=== PATIENT | female | born 1980 | race Caucasian/White ===

== ENCOUNTER → 2016-09-02 | Outpatient (CLI) | payer OTHER ==
[~2016-09-02] MED LIST: FLEXERIL5 MG PO; MOTRIN800 MG PO
[2016-09-02 15:01] LABS: BUN 11 mg/dl (7-24); EST GLOM FILT AFRICAN AMERICAN > 60 ml/min; GLUCOSE 89 mg/dL (65-99)
== END | disposition home or self-care (01) ==
LOC: LAB 14:08
PROVIDERS: Internal Medicine Endocrinology, Diabetes & Metabolism
DX: E28.2 Polycystic ovarian syndrome (principal); E66.9 Obesity, unspecified

== ENCOUNTER → 2017-03-11 | Outpatient (CLI) | payer OTHER ==
[2017-03-11 16:48] LABS: BUN 12 mg/dl (7-24); CREATININE 0.63 mg/dL (0.55-1.02)
== END | disposition home or self-care (01) ==
LOC: LAB 14:55
PROVIDERS: Internal Medicine Endocrinology, Diabetes & Metabolism
DX: E28.2 Polycystic ovarian syndrome (principal); E66.9 Obesity, unspecified

== ENCOUNTER → 2017-07-06 | Outpatient (CLI) | payer OTHER ==
[2017-07-07 08:07] LABS: PROLACTIN 004465 19.6 ng/mL (4.8-23.3); THYROID PEROXIDASE (TPO) AB 135 IU/mL (0-34)
[2017-07-09 07:46] LABS: THYROID STIM IMMUNOGLOBULIN <0.10 IU/L (0.00-0.55)
== END | disposition home or self-care (01) ==
LOC: LAB 03:36
DX: E28.2 Polycystic ovarian syndrome (principal)

== ENCOUNTER 2017-12-08 23:34 | Emergency (ER) | payer OTHER ==
[~2017-12-08] VITALS: Ht 149.8 cm; Wt 78.5 kg
[2017-12-09] LABS: BILIRUBIN NEGATIVE (NEGATIVE); BLOOD TRACE-INTACT (NEGATIVE); CLARITY CLEAR (CLEAR); COLOR YELLOW (YELLOW); GLUCOSE NEGATIVE (NEGATIVE); KETONE NEGATIVE (NEGATIVE); LEUKO ESTERASE 2+ (NEGATIVE); NITRITE NEGATIVE (NEGATIVE); PH 6.5 (5.0-9.0); SPECIFIC GRAVITY <= 1.005 (1.005-1.030); UROBILINOGEN 0.2 E.U./dl (0.2-1.0)
[2017-12-09 00:20] LABS: EPITHELIAL CELLS 15-20
[2017-12-09] MEDS ORDERED: SEPTDS PO (01:29)
== END 2017-12-09 02:10 | disposition home or self-care (01) ==
LOC: ED 23:34
PROVIDERS: Nurse Practitioner Family
DX: S02.2XXA Fracture of nasal bones, initial encounter for closed fracture (principal); N39.0 Urinary tract infection, site not specified; W50.0XXA Accidental hit or strike by another person, initial encounter; Y93.61 Activity, american tackle football; Y92.89 Other specified places as the place of occurrence of the external cause; Y99.9 Unspecified external cause status

== ENCOUNTER → 2018-05-06 | Outpatient (CLI) | payer OTHER ==
[~2018-05-06] MED LIST changes: +SEPTDS PO
[2018-05-06 11:45] LABS: BUN 7 mg/dl (7-24); CREATININE 0.63 mg/dL (0.55-1.02)
== END | disposition home or self-care (01) ==
LOC: LAB 11:01
PROVIDERS: Internal Medicine Endocrinology, Diabetes & Metabolism
DX: E66.9 Obesity, unspecified (principal); E28.2 Polycystic ovarian syndrome

== ENCOUNTER → 2019-01-08 | Outpatient (CLI) | payer OTHER ==
[2019-01-08 12:50] LABS: THYROID STIM HORMONE (HS) 1.27 uIU/ml (0.358-4.75)
== END | disposition home or self-care (01) ==
LOC: LAB 11:37
PROVIDERS: Internal Medicine Endocrinology, Diabetes & Metabolism
DX: E28.2 Polycystic ovarian syndrome (principal); E66.9 Obesity, unspecified; R73.01 Impaired fasting glucose

== ENCOUNTER → 2019-09-20 | Outpatient (CLI) | payer OTHER ==
[2019-09-20 12:34] LABS: BUN 10 mg/dl (7-24); CHLORIDE 106 mmol/L (98-107); CREATININE 0.71 mg/dL (0.55-1.02); POTASSIUM 3.8 mmol/L (3.5-5.1); SODIUM 139 mmol/L (136-145)
[2019-09-20 12:40] LABS: VITAMIN D, 25-HYDROXY 30.5 ng/mL (30-100)
== END ==
LOC: LAB 10:46
PROVIDERS: Internal Medicine Endocrinology, Diabetes & Metabolism
DX: E28.2 Polycystic ovarian syndrome (principal); E66.9 Obesity, unspecified; E56.8 Deficiency of other vitamins; R73.01 Impaired fasting glucose

== ENCOUNTER → 2019-10-19 | Outpatient (CLI) | payer OTHER | END | disposition home or self-care (01) | LOC: LAB 12:02 | DX: Z31.81 Encounter for male factor infertility in female patient (principal); Z97.8 Presence of other specified devices ==

== ENCOUNTER → 2019-11-24 | Outpatient (CLI) | payer OTHER | END | disposition home or self-care (01) | LOC: LAB 07:21 | DX: N97.0 Female infertility associated with anovulation (principal) ==

== ENCOUNTER → 2020-01-18 | Outpatient (CLI) | payer OTHER ==
[2020-01-18 12:16] LABS: BUN 8 mg/dl (7-24); CHOLESTEROL 229 mg/dL (<200); CREATININE 0.67 mg/dL (0.55-1.02); HDL CHOLESTEROL 46 mg/dl (40-60); LDL CHOLESTEROL 137 mg/dL (9-159); SGOT/AST 90 IU/L (3-35); SGPT/ALT 119 U/L (12-78); TRIGLYCERIDES 230 mg/dl (<150); VLDL CHOLESTEROL 46 mg/dL (6-40)
[2020-01-18 12:30] LABS: VITAMIN D, 25-HYDROXY 34.8 ng/mL (30-100)
== END ==
LOC: LAB 11:08
PROVIDERS: ATTEND Internal Medicine Endocrinology, Diabetes & Metabolism
DX: E28.2 Polycystic ovarian syndrome (principal); E66.9 Obesity, unspecified; R73.01 Impaired fasting glucose; E56.8 Deficiency of other vitamins

== ENCOUNTER → 2020-03-19 | Outpatient (CLI) | payer OTHER ==
[2020-03-20 07:06] LABS: HEPATITIS B SURFACE AG Negative (Negative); HEPATITIS C AB <0.1 (0.0-0.9)
[2020-03-20 08:08] LABS: CYTOMEGALOVIRUS AB, IGG <0.60 U/mL (0.00-0.59)
== END | disposition home or self-care (01) ==
LOC: LAB 09:15
PROVIDERS: ATTEND Obstetrics & Gynecology Reproductive Endocrinology
DX: Z11.9 Encounter for screening for infectious and parasitic diseases, unspecified (principal)

== ENCOUNTER → 2020-05-10 | Outpatient (CLI) | payer OTHER ==
[2020-05-10 12:53] LABS: BUN 10 mg/dl (7-24); CHOLESTEROL 263 mg/dL (<200); CREATININE 0.75 mg/dL (0.55-1.02); HDL CHOLESTEROL 50 mg/dl (40-60); LDL CHOLESTEROL 179 mg/dL (9-159); SGOT/AST 112 IU/L (3-35); SGPT/ALT 130 U/L (12-78); TRIGLYCERIDES 170 mg/dl (<150); VLDL CHOLESTEROL 34 mg/dL (6-40)
[2020-05-10 13:39] LABS: VITAMIN D, 25-HYDROXY 34.6 ng/mL (30-100)
== END | disposition home or self-care (01) ==
LOC: LAB 12:02
PROVIDERS: ATTEND Internal Medicine Endocrinology, Diabetes & Metabolism
DX: E28.2 Polycystic ovarian syndrome (principal); E66.9 Obesity, unspecified; R73.01 Impaired fasting glucose; E56.8 Deficiency of other vitamins; E78.5 Hyperlipidemia, unspecified

== ENCOUNTER → 2020-05-23 | Outpatient (CLI) | payer OTHER ==
[2020-05-23 19:21] LABS: ALBUMIN 4.2 gm/dl (3.1-4.5); ALKALINE PHOSPHATASE 57 U/L (45-117); BILIRUBIN, DIRECT < 0.1 mg/dL (0.0-0.2); GAMMA GLUTAMYL TRANSPEPTIDASE 121 U/L (5-55); SGOT/AST 119 IU/L (3-35); SGPT/ALT 162 U/L (12-78); TOTAL PROTEIN 8.3 gm/dL (6.4-8.2)
== END | disposition home or self-care (01) ==
LOC: LAB 17:43
PROVIDERS: ATTEND Internal Medicine Endocrinology, Diabetes & Metabolism
DX: R74.8 Abnormal levels of other serum enzymes (principal)

== ENCOUNTER → 2020-05-24 | Outpatient (CLI) | payer OTHER ==
[2020-05-26 04:08] LABS: HEP B CORE AB, IGM Negative (Negative); HEPATITIS B SURFACE AG Negative (Negative); HEPATITIS C VIRUS ANTIBODY <0.1 s/co (0.0-0.9)
== END | disposition home or self-care (01) ==
LOC: LAB 17:55
PROVIDERS: ATTEND Internal Medicine Endocrinology, Diabetes & Metabolism
DX: R74.8 Abnormal levels of other serum enzymes (principal)

== ENCOUNTER → 2020-06-10 | Outpatient (CLI) | payer OTHER | END | disposition home or self-care (01) | LOC: COVID19 11:22 | PROVIDERS: ATTEND Family Medicine | DX: Z20.822 Contact with and (suspected) exposure to COVID-19 (principal) ==

== ENCOUNTER → 2020-08-22 | Outpatient (CLI) | payer OTHER ==
[2020-08-22 11:09] LABS: ALKALINE PHOSPHATASE 54 U/L (45-117); BUN 11 mg/dl (7-24); CHOLESTEROL 240 mg/dL (<200); CREATININE 0.66 mg/dL (0.55-1.02); GAMMA GLUTAMYL TRANSPEPTIDASE 115 U/L (5-55); HDL CHOLESTEROL 49 mg/dl (40-60); LDL CHOLESTEROL 164 mg/dL (9-159); SGOT/AST 48 IU/L (3-35); SGPT/ALT 74 U/L (12-78); TRIGLYCERIDES 133 mg/dl (<150); VLDL CHOLESTEROL 27 mg/dL (6-40)
[2020-08-22 12:11] LABS: VITAMIN D, 25-HYDROXY 34.6 ng/mL (30-100)
== END | disposition home or self-care (01) ==
LOC: LAB 09:58
PROVIDERS: ATTEND Internal Medicine Endocrinology, Diabetes & Metabolism
DX: E28.2 Polycystic ovarian syndrome (principal); E66.9 Obesity, unspecified; E78.5 Hyperlipidemia, unspecified; R74.8 Abnormal levels of other serum enzymes; E56.8 Deficiency of other vitamins; R73.01 Impaired fasting glucose

== ENCOUNTER → 2020-10-31 | Outpatient (CLI) | payer OTHER | END | disposition home or self-care (01) | LOC: LAB 20:38 | PROVIDERS: ATTEND Obstetrics & Gynecology | DX: Z31.81 Encounter for male factor infertility in female patient (principal) ==

== ENCOUNTER → 2021-08-27 | Outpatient (CLI) | payer BC, OTHER ==
[2021-08-27 12:01] LABS: BUN 13 mg/dl (7-24); CREATININE 0.68 mg/dL (0.55-1.02); SGOT/AST 28 IU/L (3-35); SGPT/ALT 40 U/L (12-78)
[2021-08-27 12:06] LABS: CHOLESTEROL 229 mg/dL (<200); LDL CHOLESTEROL 153 mg/dL (9-159); TRIGLYCERIDES 133 mg/dl (<150)
[2021-08-27 13:08] LABS: VITAMIN D, 25-HYDROXY 43.3 ng/mL (30-100)
== END | disposition home or self-care (01) ==
LOC: LAB 11:24
PROVIDERS: ATTEND Internal Medicine Endocrinology, Diabetes & Metabolism
DX: E28.2 Polycystic ovarian syndrome (principal); E66.9 Obesity, unspecified; R73.01 Impaired fasting glucose; E78.5 Hyperlipidemia, unspecified; E55.9 Vitamin D deficiency, unspecified; R74.8 Abnormal levels of other serum enzymes; E53.8 Deficiency of other specified B group vitamins

== ENCOUNTER → 2021-09-03 | Outpatient (CLI) | payer BC, OTHER | END | disposition home or self-care (01) | LOC: LAB 20:52 | PROVIDERS: ATTEND Obstetrics & Gynecology | DX: Z31.81 Encounter for male factor infertility in female patient (principal); N97.8 Female infertility of other origin ==

== ENCOUNTER → 2022-08-28 | Outpatient (CLI) | payer BC, OTHER ==
[2022-08-28 08:10] LABS: BUN 14 mg/dl (9-23); CHOLESTEROL 193 mg/dL (<200); LDL CHOLESTEROL 115 mg/dL (9-159); SGPT/ALT 12 U/L (10-49); THYROID STIM HORMONE (HS) 3.878 uIU/ml (0.550-4.780); TRIGLYCERIDES 126 mg/dl (<150)
[2022-08-28 08:24] LABS: VITAMIN D, 25-HYDROXY 47.3 ng/mL (30-100)
== END | disposition home or self-care (01) ==
LOC: LAB 01:27
PROVIDERS: ATTEND Internal Medicine Endocrinology, Diabetes & Metabolism
DX: E55.9 Vitamin D deficiency, unspecified (principal); E78.5 Hyperlipidemia, unspecified; E66.9 Obesity, unspecified; E28.2 Polycystic ovarian syndrome; R73.01 Impaired fasting glucose; R74.8 Abnormal levels of other serum enzymes

== ENCOUNTER → 2024-03-25 | Outpatient (CLI) | payer BC | END | disposition home or self-care (01) | LOC: MRI 03-11 15:00 | PROVIDERS: ATTEND Nurse Practitioner Family | DX: M25.461 Effusion, right knee (principal); M25.561 Pain in right knee; R60.0 Localized edema; M79.89 Other specified soft tissue disorders ==